=== PATIENT | female | born 1995 | race Caucasian/White ===

== ENCOUNTER 2017-09-30 12:52 | Emergency (ER) | END 2017-09-30 15:18 | disposition home or self-care (01) ==

== ENCOUNTER 2019-02-23 14:15 | Emergency (ER) | payer OTHER ==
[~2019-02-23] VITALS: Ht 160 cm; Wt 95.0 kg
[~2019-02-23 14:15] MED LIST: DOCU-144 PO; FER325 PO; NORE1TAB12 PO
[2019-02-23 14:22] VITALS: BP 146/92; PULSE 92; RESP 18; Ht 160 cm; Wt 95.0 kg
[2019-02-23] MEDS ORDERED: FER325 PO (16:15)
--- NOTE | 2019-02-23 16:22 | ERD ---
ER Documentation Chief Complaint Chief Complaint vag bleed x 5 days with clots and cramps HPI 23-year-old past medical history of murmur who presents for vaginal bleeding x5 days. She states that she currently on her menstrual cycle and states that the bleeding is a little bit heavier than normal. She states she is noted about 5 pads or more a day. She has seen her [facility] for similar symptoms and was given control pills however states that she stopped the medication due to weight gain. She was also put on Provera recently and when she completed the medication she states that the bleeding has been a little bit heavier than normal. She denies any dizziness, chest pain, shortness of breath. Denies nausea vomiting. Denies pelvic pain. No other modifying factors noted, no treatment tried at home. ROS All systems reviewed and are negative except as per history of present illness. Medications Home Meds Active Scripts Ferrous Sulfate* (Ferrous Sulfate*) 325 Mg Tabec, 325 MG PO DAILY for anemia, #30 TAB Prov:FAHAD ASCENCIO DO 02/23/19 Docusate Sodium* (Colace*) 100 Mg Capsule, 100 MG PO TID, #30 CAP Prov:JEAN-CLAUDE HIGGINS PA-C 09/30/17 Ferrous Sulfate* (Ferrous Sulfate*) 325 Mg Tabec, 325 MG PO BID, #60 TAB Prov:JEAN-CLAUDE HIGGINS PA-C 09/30/17 Noreth A-Et Estra/Fe Fumarate (LO LOESTRIN FE 1-10 TABLET) 1 Each Tablet, 1 EACH PO DAILY, #1 PACKET Prov:JEAN-CLAUDE HIGGINS PA-C 09/30/17 PMhx/Soc Murmur, being followed by cardiology Hx Alcohol Use: No Hx Substance Use: No Hx Tobacco Use: No Smoking Status: Never smoker FmHx Family History: No coronary disease Physical Exam Vitals Vital Signs Date Temp Pulse Resp B/P (MAP) Pulse Ox O2 O2 Flow FiO2 Time Delivery Rate 02/23/19 98.1 92 18 146/92 100 14:22 (110) Physical Exam Const: No acute distress Resp: Clear to auscultation bilaterally Cardio: Regular rate and rhythm, no murmurs Abd: Soft, non tender, non distended. Normal bowel sounds Skin: No petechiae or rashes Back: No midline or flank tenderness Ext: No cyanosis, or edema Neur: Awake and alert Psych: Normal Mood and Affect Result Diagram: 02/23/19 1508 Results 24 hrs Laboratory Tests Test 02/23/19 15:08 02/23/19 15:13 White Blood Count 9.5 10^3/ul Red Blood Count 3.76 10^6/ul Hemoglobin 8.6 g/dl Hematocrit 27.9 % Mean Corpuscular Volume 74.2 fl Mean Corpuscular Hemoglobin 22.9 pg Mean Corpuscular Hemoglobin Concent 30.8 g/dl Red Cell Distribution Width 16.9 % Platelet Count 413 10^3/UL Mean Platelet Volume 8.5 fl Immature Granulocytes % 0.300 % Neutrophils % 61.9 % Lymphocytes % 30.6 % Monocytes % 6.3 % Eosinophils % 0.4 % Basophils % 0.5 % Nucleated Red Blood Cells % 0.0 /100WBC Immature Granulocytes # 0.030 10^3/ul Neutrophils # 5.8 10^3/ul Lymphocytes # 2.9 10^3/ul Monocytes # 0.6 10^3/ul Eosinophils # 0.0 10^3/ul Basophils # 0.1 10^3/ul Nucleated Red Blood Cells # 0.0 10^3/ul Urine Color RED Urine Clarity BLOODY Urine pH 7.0 Urine Specific Tolstoy 1.005 Urine Ketones NEGATIVE mg/dL Urine Nitrite NEGATIVE mg/dL Urine Bilirubin NEGATIVE mg/dL Urine Urobilinogen NEGATIVE mg/dL Urine Leukocyte Esterase NEGATIVE Ruth/ul Urine Microscopic RBC > 182 /HPF Urine Microscopic WBC 31 /HPF Urine Hemoglobin 3+ mg/dL Urine Glucose NEGATIVE mg/dL Urine Total Protein 3+ mg/dl Beta HCG, Quantitative < 2.4 mIU/ml POC Beta HCG, Qualitative NEGATIVE Procedures/MDM Medical Decision Making: Differential diagnosis includes but not limited to menorrhagia, ovarian cyst, uterine fibroid, . Patient appeared well on physical examination. CBC showed no elevated WBC to suggest systemic infection, hemoglobin 8.6 UA did not indicate infection Urine test was negative Pelvic ultrasound noted to be unremarkable, there is no uterine fibroid or cyst noted Patient likely has menorrhagia due to hormonal history lesion. Patient advised to follow with [facility]. She states that she has a PCP appointment in 2 days. She is advised to recheck her hemoglobin level as well as repeat pelvic ultrasound. Given prescription for iron for the anemia. Patient advised to follow up with PCP in 1-2 days. Patient advised to return to ED for new or worsening symptoms. Patient stable on discharge from the ED. Disclaimer: Inadvertent spelling and grammatical errors are likely due to EHR/dictation software use and do not reflect on the overall quality of patient care. Also, please note that the electronic time recorded on this note does not necessarily reflect the actual time of the patient encounter. Departure Diagnosis: Primary Impression: Excessive vaginal bleeding Condition: Fair Patient Instructions: Menorrhagia Referrals: [facility] YOU HAVE RECEIVED A MEDICAL SCREENING EXAM AND THE RESULTS INDICATE THAT YOU DO NOT HAVE A CONDITION THAT REQUIRES URGENT TREATMENT IN THE EMERGENCY DEPARTMENT. FURTHER EVALUATION AND TREATMENT OF YOUR CONDITION CAN WAIT UNTIL YOU ARE SEEN IN YOUR DOCTORS OFFICE WITHIN THE NEXT 1-2 DAYS. IT IS YOUR RESPONSIBILITY TO MAKE AN APPOINTMENT FOR FOLOW-UP CARE. IF YOU HAVE A PRIMARY DOCTOR --you should call your primary doctor and schedule an appointment IF YOU DO NOT HAVE A PRIMARY DOCTOR YOU CAN CALL OUR PHYSICIAN REFERRAL HOTLINE AT IF YOU CAN NOT AFFORD TO SEE A PHYSICIAN YOU CAN CHOSE FROM THE FOLLOWING [facility] [address] [facility]. [facility] [address] [employer] [facility] [facility] [address] [facility]. [facility] [address] [facility]. [facility] [address] [facility]. [facility]. [address] Additional Instructions: Llame al doctor MAANA y marissa mayco SHAYNE PARA DENTRO DE 1-2 [place].Dgale a la secretaria que nosotros le instruimos hacer esta shayne.Avise o llame si aguero condicin se empeora antes de la shayne. Regresa aqui si peor o no mejor. Call your primary care doctor TOMORROW for an appointment during the next 1-2 days.See the doctor sooner or return here if your condition worsens before your appointment time. FAHAD ASCENCIO DO Feb 23, 2019 16:22
== END 2019-02-23 16:35 | disposition home or self-care (01) ==
LOC: FTE 14:15
DX: N93.9 Abnormal uterine and vaginal bleeding, unspecified (principal)
CPT/HCPCS: 36415; 76856; 81001; 84702; 85025; Z7502; 81025